=== PATIENT | female | born 1955 | race African-American/Black ===

== ENCOUNTER 2017-06-08 08:45 | Emergency (ER) | payer OTHER ==
[~2017-06-08] VITALS: Ht 170.2 cm; Wt 102.1 kg
[~2017-06-08 08:45] MED LIST: ADALAT CC30 MG PO; CLARITIN10 MG PO; ENBREL50 MG/1 ML SQ; FOLIC ACID1 MG PO; MULTIVITAMIN; PREDNISONE 20 M20 M1 PO; RHEUMATREX2.5 MG; VITAMIN D1000 UNI1 PO; ZANTAC 150MG T150 M1 PO
[2017-06-08] MEDS ORDERED: ZYRTEC10 M2 PO (09:18)
[2017-06-08] MEDS ORDERED: DOXYCYCLINE 10100 MG PO (09:18)
== END 2017-06-08 09:38 | disposition home or self-care (01) ==
LOC: ER 08:45
DX: J18.9 Pneumonia, unspecified organism (principal); J06.9 Acute upper respiratory infection, unspecified; D89.9 Disorder involving the immune mechanism, unspecified; I10 Essential (primary) hypertension; M06.9 Rheumatoid arthritis, unspecified; Z96.653 Presence of artificial knee joint, bilateral; Z88.6 Allergy status to analgesic agent

== ENCOUNTER 2019-05-23 01:00 | Emergency (ER) | payer BC, OTHER ==
[~2019-05-23] VITALS: Ht 170.2 cm; Wt 102.1 kg
[~2019-05-23 01:00] MED LIST changes: +DOXYCYCLINE 10100 MG PO; +ZYRTEC10 M2 PO
[2019-05-23 02:22] VITALS: BP 183/83
== END 2019-05-23 02:27 | disposition home or self-care (01) ==
LOC: ER 01:00
DX: M25.522 Pain in left elbow (principal); I10 Essential (primary) hypertension; M19.90 Unspecified osteoarthritis, unspecified site; Z96.652 Presence of left artificial knee joint; Z98.51 Tubal ligation status